=== PATIENT | female | born 1980 | race Caucasian/White ===

== ENCOUNTER 2016-07-31 23:27 | Emergency (ER) | payer BC, OTHER ==
[~2016-07-31] VITALS: Ht 167.6 cm; Wt 106.0 kg
[~2016-07-31 23:27] MED LIST: ALBUAER19 INH
[2016-07-31] MEDS ORDERED: ALBUT/IPRATROP 3MG/0.5MG NEB 3 ML VIAL ONE (23:30)
[2016-07-31 23:46] VITALS: TEMP 36.6; O2SAT 96; Ht 167.6 cm; Wt 106.0 kg
[2016-07-31] MEDS ORDERED: METHYLPREDNISOLONE 125 MG VIAL IV STA (23:48)
[2016-08-01] MEDS ORDERED: VNTHFA/IN INH (00:01)
[2016-08-01] MEDS ORDERED: PRED20TA PO (01:16)
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
[2016-08-01] MEDS ORDERED: ALBUTEROL HFA 8 GM INHALER INH ONE (01:30)
[2016-08-01 01:39] VITALS: BP 132/71; PULSE 90; O2SAT 98
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
== END 2016-08-01 01:40 | disposition home or self-care (01) ==
LOC: EDBD 23:27 → C.EDB 23:29
DX: T59.811A Toxic effect of smoke, accidental (unintentional), initial encounter (principal); X00.1XXA Exposure to smoke in uncontrolled fire in building or structure, initial encounter; Y92.019 Unspecified place in single-family (private) house as the place of occurrence of the external cause; J45.901 Unspecified asthma with (acute) exacerbation; J70.5 Respiratory conditions due to smoke inhalation; F17.210 Nicotine dependence, cigarettes, uncomplicated; Z82.49 Family history of ischemic heart disease and other diseases of the circulatory system